=== PATIENT | male | born 1955 | race Caucasian/White ===

== ENCOUNTER → 2016-06-07 | Outpatient (CLI) | payer OTHER ==
[~2016-06-07] VITALS: Ht 193 cm; Wt 106.1 kg
[~2016-06-07] MED LIST: ALEVE220 MG PO; AMBIEN 5 MG TABL5 M1 PO; AMITRIPTYLINE H25 M2 PO; AZILECT1 MG PO; BACLOFEN 10MG T10 MG PO; CARBIDOPA/LEVO1 TAB PO; CENTRUM SILVER1 EAC2; CIALIS5 MG PO; FISH OIL 1,001000 M2 PO; FLAX SEED OIL1000 MG; FLOMAX0.4 MG PO; HYDROCODONE-AP1 EAC6 PO; LIORESAL 10 MG10 MG PO; MOBIC7.5 MG PO; NABUMETONE 500500 M1 PO; OXYCODONE HCL 55 MG PO; PERCOCET 10-321 EACH PO; PRAMIPEXOLE D0.25 MG PO; SKELAXIN 800 M800 M1 PO; VITAMIN D3400 UNIT; WELLBUTRIN XL300 MG PO
--- NOTE | ~2016-06-07 | HPC ---
[facility] [place] [address] PAIN MANAGEMENT CONSULTATION Name: CONCETTA VILLAGOMEZ [id number] Admission: 06/07/16 Attend Phys: Kaleb Mullins DO Discharge: Date of : 55 Report #: [id number] THIS REPORT FOR: //name// CC: Kaleb Grady DATE OF SERVICE: 06/07/2016 CHIEF COMPLAINT: Right shoulder pain. HISTORY OF PRESENT ILLNESS: As you know, the patient is a very pleasant 60-year-old male who was referred to our service for right shoulder pain status post surgery. He continues to experience right shoulder pain, but is undergoing physical therapy which exacerbates his symptoms. He has an appointment coming up on the with his orthopedic surgeon for evaluation. Apparently, his pain has intensified. 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 He returns today requesting refill of medication. He has denied any side effects of medication, does feel the medications work beneficially to provide pain control, so he can participate as fully as possible in physical therapy. He returns requesting refill on medication for the next 2 months. ALLERGIES: No known drug allergies. CURRENT MEDICATIONS: Baclofen, multivitamin, flaxseed oil, cholecalciferol, nabumetone and Percocet. SOCIAL HISTORY: The patient denies tobacco, IV or illicit drug use. Admits to approximately 3 alcoholic beverages per week. He is employed, working, not receiving workmen's compensation, unaccompanied today. IMAGING: No new imaging available. PHYSICAL EXAMINATION: VITAL SIGNS: Blood pressure 126/84, pulse 85, respiratory rate 14 and unlabored. The patient is 96% on room air. Height 6 feet 4 inches tall, weight 234 pounds, BMI calculated 28.5. GENERAL: Well-developed, well-nourished, well-hydrated, 60-year-old male. He appears his stated age. He is placing pain score approximately 6/10. HEENT: Normocephalic, atraumatic. Pupils equal, round, reactive to light. Extraocular muscles are intact. Sclerae nonicteric, without injection. Speech fluent. The patient deemed an excellent historian. LUNGS: Clear, no wheezing, rhonchi or rales. CARDIOVASCULAR: Regular. No appreciable gallop or rub. ABDOMEN: Soft, nontender, nondistended, normoactive bowel sounds. EXTREMITIES: Show no clubbing, no cyanosis, no edema. MUSCULOSKELETAL: The patient does have decreased range [place] [address] PAIN MANAGEMENT CONSULTATION Name: CONCETTA VILLAGOMEZ Room #: REG [facility]#: [id number] Admission: 06/07/16 Attend Phys: Kaleb Mullins DO Discharge: Date of : 55 Report #: [id number] shoulder when compared to left. The pain is elicited with full rotation and abduction. ASSESSMENT: 1. Right shoulder pain status post surgery. 2. Chronic intractable pain. PLAN: 1. The patient has returned today in followup visit indicating that the medications provided for pain control of late has provided good benefit. He denies any side effects with the medication, does wish to continue the therapy. He realizes that continuation of Percocet is predicated on the fact he continues his physical therapy. He is continuing with therapy and being baptism with its use. There has been concern the patient may have actually caused some irritation due to increased use. He does have an appointment with orthopedics on June 12 where they will discuss this further. At this time, the patient feels medications are working beneficially, they allow him to participate in his daily activities and physical therapy. He wishes refills on that therapy. 2. The patient was provided a prescription of Percocet 10 one tab p.o. q. 3-1/2 hours p.r.n. for pain, I have given him #180. Advised the patient to take one to two tabs as necessary for pain control. He has been vigilant on his use of medication and that he has not called for early refills, he has not requested increasing dosing, he has been very appropriate with his therapy. He is denying any side effects and shown no aberrancy. We will continue the medication at this time, we will provide him a prescription of this month ____. 3. The patient will continue on nabumetone 500 mg dose 1 tab p.o. t.i.d. I have given the patient #90 tablets with 2 refills 3 months worth of medication. 4. The patient will return to our clinic in 2 months for further evaluation. He will contact us after he has had his appointment with his orthopedic surgeon to ____ if any changes have been made. By: [id number] Kaleb Mullins DO /nt
[2016-06-07 08:32] VITALS: BP 126/84
== END ==
LOC: PAIN 07:17
DX: G89.29 Other chronic pain (principal); I10 Essential (primary) hypertension; E11.9 Type 2 diabetes mellitus without complications

== ENCOUNTER → 2017-02-13 | Outpatient (CLI) | payer OTHER ==
[~2017-02-13] VITALS: Ht 193 cm; Wt 109.8 kg
--- NOTE | ~2017-02-13 | HPC ---
[facility] [place] [address] PAIN MANAGEMENT CONSULTATION Name: CONCETTA VILLAGOMEZ Room #: REG [facility].#: [id number] Admission: 02/13/17 Attend Phys: Kaleb Mullins DO Discharge: Date of : 55 Report #: [id number] THIS REPORT FOR: //name// CC: Kaleb Grady MD DATE OF SERVICE: 02/13/2017 CHIEF COMPLAINT: Right shoulder pain. HISTORY OF PRESENT ILLNESS: As you know, the patient is a very pleasant 61-year-old male who has returned today in followup visit with continued right shoulder pain. He states he has been more active of late and this has caused an increase in right shoulder pain. He denies specific injury or trauma, but indicates that his pain intensifies with activity with the right shoulder. There is no neck involvement. His pain is directly related to activities. He does have a diagnosis of osteoarthritis of the shoulders bilaterally. Apparently, he has been evaluated also for rotator cuff injury, which apparently is present on his right shoulder. He returns today in followup visit requesting a right intra-articular shoulder injection under fluoroscopic guidance. ALLERGIES: No known drug allergies. CURRENT MEDICATIONS: Baclofen, multivitamin, flaxseed oil, cholecalciferol, nabumetone, Percocet, Azilect, bupropion, pramipexole, amitriptyline. SOCIAL HISTORY: The patient denies tobacco, alcohol, IV or illicit drug use. He is employed, working, not receiving workmen's compensation, unaccompanied today. IMAGING: No new imaging available. PHYSICAL EXAMINATION: VITAL SIGNS: Blood pressure 116/74, pulse is 75, respiratory rate 16, unlabored. The patient is 99% on room air, height 6 feet 4 inches tall, weight 242 pounds, BMI calculated 29.5. GENERAL: Well-developed, well-nourished, well-hydrated 61-year-old male who appears his stated age. He is placing current pain score at 7/10. HEENT: Normocephalic, atraumatic. Pupils equal, round, reactive to light. Extraocular muscles are intact. Sclerae nonicteric without injection. NEUROLOGIC: Cranial nerves 2-12 grossly intact. Speech is fluent. The patient deemed good historian. EXTREMITIES: Show no clubbing, no cyanosis, no edema. MUSCULOSKELETAL: There is palpatory tenderness noted over the shoulder, both anterior and posterior. Active and passive range of motion causes [facility] [address] [place] [address] PAIN MANAGEMENT CONSULTATION Name: CONCETTA VILLAGOMEZ Room #: REG [facility]#: [id number] Admission: 02/13/17 Attend Phys: Kaleb Mullins DO Discharge: Date of : 55 Report #: [id number] intensification of pain with the shoulder itself. There is limitation of active range of motion secondary to pain generation. ASSESSMENT: 1. Right shoulder pain. 2. Right shoulder osteoarthritis. PLAN: 1. The patient has returned today in followup visit requesting an intra-articular shoulder injection to help right shoulder pain. The patient does carry the diagnosis of right shoulder osteoarthritis and there is a strong likelihood the patient has injured his rotator cuff in the past and this is exacerbation of symptoms. He has been advised of treatment options for right shoulder pain, which would include physical therapy, stretching exercise, core strengthening. We discussed medication management with nonsteroidal anti-inflammatories either topically or orally. We also discussed intra-articular shoulder injections for which the patient has returned today and surgical options. After reviewing risks and benefits of all proposed treatment options, the patient chose to undergo the right intra-articular shoulder injection under fluoroscopic guidance. The patient was advised risks and benefits of a shoulder injection. These risks include but not necessarily limited to bleeding, bruising, infection, worsening pain, no relief of pain, also risk of temporary or permanent muscle weakness, temporary or permanent nerve damage, possible paralysis and . The patient states understood and wished to proceed. 2. No medication changes were made at today's visit. The patient will continue current medical therapy as previously prescribed. 3. We will see the patient back in followup visit on an as needed basis for possible next in a series of right intra-articular shoulder injections. PROCEDURE NOTE DESCRIPTION OF PROCEDURE: Right intra-articular shoulder injection under fluoroscopic guidance. After obtaining written consent, the patient was taken back to fluoroscopy suite, placed in a supine position. The image intensifier (C-arm) was brought into position over the right shoulder and AP imaging was obtained. A sterile marker was used to john the injection site and area was prepped and draped with chlorhexidine. A 27-gauge 1-1/4 inch needle was then used to anesthetize skin and subcutaneous tissue with 2 mL lidocaine 1% preservative free. A 25-gauge 2-inch needle was advanced under fluoroscopic guidance into the right shoulder joint and advanced under direct visualization with a fluoroscope to the proximal head of the humerus. Needle was retracted approximately [address] [address] PAIN MANAGEMENT CONSULTATION Name: CONCETTA VILLAGOMEZ [id number] Admission: 02/13/17 Attend Phys: Kaleb Mullins DO Discharge: Date of : 55 Report #: [id number] aspiration noted to be negative for heme. After aspiration noted negative for heme, 0.2 mL of Omnipaque was injected demonstrating excellent right shoulder arthrogram. After negative aspiration for heme, 3 mL of a solution containing 1 mL 40 mg per mL, 40 mg total triamcinolone, 2 mL of bupivacaine 0.5% was injected slowly. Needle was retracted usp and flushed with 1 mL lidocaine 1% and removed. Sterile bandage was placed over injection site. No new motor deficits present over the upper extremity following procedure. The patient tolerated the procedure well, carefully escorted to the recovery room in stable condition. No apparent complications. After meeting discharge criteria, the patient discharged home. <ELECTRONICALLY SIGNED> By: Kaleb Mullins DO 02/21/17 [id number] [id number] Kaleb Mullins DO /nt
[2017-02-13 10:15] VITALS: BP 116/74
== END | disposition home or self-care (01) ==
LOC: PAIN 06:44
DX: M19.011 Primary osteoarthritis, right shoulder (principal)

== ENCOUNTER → 2017-06-11 | Outpatient (CLI) | payer BC, OTHER ==
[2017-06-11 09:32] LABS: CREATININE 1.4 mg/dL (0.7-1.3)
== END ==
LOC: CAT 05:57
PROVIDERS: Family Medicine
DX: R91.1 Solitary pulmonary nodule (principal)

== ENCOUNTER → 2019-09-09 | Outpatient (CLI) | payer OTHER | LOC: CAT 13:42 | PROVIDERS: ATTEND Family Medicine | DX: J33.8 Other polyp of sinus (principal); R22.1 Localized swelling, mass and lump, neck ==

== ENCOUNTER → 2019-12-19 | Outpatient (CLI) | payer BC, OTHER | LOC: ULTRA 07:39 | PROVIDERS: ATTEND Family Medicine | DX: E04.2 Nontoxic multinodular goiter (principal) ==

== ENCOUNTER → 2020-04-05 | Outpatient (CLI) | payer BC, OTHER | LOC: ULTRA 12-26 11:03 → LAB 04-02 07:07 | PROVIDERS: ATTEND Anesthesiology | DX: Z01.812 Encounter for preprocedural laboratory examination (principal); Z20.822 Contact with and (suspected) exposure to COVID-19 ==

== ENCOUNTER → 2020-04-23 | Outpatient (CLI) | payer BC, OTHER ==
[2020-04-23 10:40] LABS: CREATININE 1.5 mg/dL (0.7-1.3)
== END ==
LOC: CAT 09:46
PROVIDERS: ATTEND Family Medicine
DX: K43.9 Ventral hernia without obstruction or gangrene (principal)

== ENCOUNTER → 2020-07-12 | Outpatient (CLI) | payer OTHER | LOC: CAT 09:05 | PROVIDERS: ATTEND Family Medicine | DX: Z13.6 Encounter for screening for cardiovascular disorders (principal); I25.10 Atherosclerotic heart disease of native coronary artery without angina pectoris; E78.00 Pure hypercholesterolemia, unspecified ==